=== PATIENT | female | born 1950 | race Caucasian/White ===

== ENCOUNTER → 2019-07-05 | Outpatient (CLI) | payer MEDICARE, BC ==
[~2019-07-05] MED LIST: ACET-1966 PO; ACET500C35 PO; ASPI-760 PO; ATOR10TA65 PO; ATOR20TA65 PO; BETA10DR4 OP; CHOL200074 PO; CHOL4PAC15 PO; CHOL500016 PO; CIP500 PO; CYAN1TAB68 PO; DAR100 PO; DOCO1CAP17 PO; DOCU-299 PO; DULA1.5P SC; ESC10 PO; EXEN2VIA SQ; FAMO-1 PO; FEN145 PO; FENO45CA PO; HYDR200T42 PO; IBU600 PO; IBU800 PO; LACT1CAP6 PO; LATA2.5D5 OP; LATA2.5D6 OP; LEV100 PO; LEV112 PO; LEVO-3 PO; LIS5 PO; LISI2.5T60 PO; LOR5/325 PO; METF-1 PO; MULT-820 PO; OMEG-11 PO; PHENA200 PO; RANI-54 PO; ROS10 PO; [UNRECOGNIZED DRUG - CODE] PO; [UNRECOGNIZED DRUG - CODE] PO; [UNRECOGNIZED DRUG - CODE] PV; [UNRECOGNIZED DRUG - OTHER] OP; [UNRECOGNIZED DRUG - OTHER] PO
--- NOTE | 2019-07-05 11:43 | RADIOLOGY IMAGING REPORT ---
[place] [facility] [place] NAME: Nova Bravo : 1950 MR: [id number] V: [id number] EXAM DATE: ORDERING PHYSICIAN: NICOLE VELASQUEZ TECHNOLOGIST: Location: [facility] Patient: Nova Bravo : 1950 Visit/Account:[id number] Date of Sevice: 07/05/2019 CT ABDOMEN PELVIS W/O CON HISTORY: History of abdominal surgery, left groin pain, abdominal wall bulge TECHNIQUE: Axial images acquired through the abdomen/pelvis. Coronal and sagittal reformatting also performed. No IV contrast administered.Dose Lowering Technique One of the following dose optimization techniques was utilized in the performance of this exam: Autom ated exposure control; adjustment of the mA and/or kV according to the patient's size; or use of an i terative reconstruction technique. Specific details can be referenced in the facility's radiology C T exam operational policy. COMPARISON: August 06, 2012 FINDINGS: Visualized lung bases: There are mitral annular calcification Hepatobiliary: Postsurgical changes from a cholecystectomy Spleen: Negative. Adrenals: Negative. Pancreas: Negative. Kidneys ureters and bladder: There are postsurgical changes from a right nephrectomy . There is a 4 mm nonobstructing calculus in the upper pole the left kidney. The bladder is decompressed therefore not well evaluated Genitalia: Atrophic uterus GI: There is diverticulosis of the left side of the colon although no CT evidence of acute diverticu litis. There is a small hiatal hernia present. There is a mildly dilated, fluid-filled loop of jejunum in the mid abdomen measuring up to 3.1 cm in diameter . No definite transitional point is seen. This may simply represent a patulous segment of bowel. Clinical correlation needed Vessels/spaces/nodes: There are several small portacaval lymph nodes that remain stable Bones/soft tissues: There are spondylotic changes of the lumbar spine that appears similar to the pr ior study. There is a mild compression fracture of L1 that appears stable . There is a small umbilical hernia containing fat. There are several small ventral hernias in the upper abdomen containing fat Additional findings: None pertinent. IMPRESSION: There is a small focal hernia containing fat There are several small ventral hernias in the upper abdomen containing fat No evidence of a left inguinal hernia There is a mildly dilated fluid-filled loop and jejunum in the mid abdomen measuring up to 3.1 cm in diameter. No definite transitional point seen. This may simply represent a patulous segment of reji l however depending upon patient's clinical presentation if a partial small bowel obstruction is of c linical concern short-term interval follow-up recommended Diverticulosis of the left side of the colon Small hiatal hernia Postsurgical changes from a right nephrectomy 4 mm nonobstructing calculus upper pole the left kidney Additional chronic findings as described Report Dictated By: Pat Velasquez MD at 07/05/2019 10:57 AM Report E-Signed By: Pat Velasquez MD at 07/05/2019 11:34 AM WSN:[email or web address]
== END ==
LOC: CT 00:46
PROVIDERS: ATTEND Surgery
DX: K43.9 Ventral hernia without obstruction or gangrene (principal); K57.30 Diverticulosis of large intestine without perforation or abscess without bleeding; N20.0 Calculus of kidney
CPT/HCPCS: 74176